=== PATIENT | female | born 1970 | race Caucasian/White ===

== ENCOUNTER 2016-10-13 20:40 | Emergency (ER) | payer BC ==
[~2016-10-13] VITALS: Ht 160 cm; Wt 86.8 kg
[~2016-10-13 20:40] MED LIST: BUTA1CAP5 PO; ESTR1TAB PO; HYDR-3516 PO; LISI-515 PO; MELO-1 PO; PANT40TA3 PO
[2016-10-13 20:49] VITALS: BP 198/98; PULSE 59; RESP 16; TEMP 98.1; O2SAT 98
[2016-10-13 21:18] VITALS: BP_SYST 143; BP_SYST 150; BP_DIAS 78; BP_DIAS 82; PULSE 55; RESP 16; O2SAT 98
[2016-10-13 22:27] LABS: AUTOMATED NEUTROPHIL # 3.4 TH/MM3 (1.8-7.7); BASOPHIL # 0.1 TH/MM3 (0-0.2); BASOPHIL % 0.7 % (0.0-2.0); EOSINOPHIL # 0.1 TH/MM3 (0-0.4); EOSINOPHIL % 0.7 % (0.0-4.0); HEMO FLAGS DIFF FINAL; LYMPH % 44.1 % (9.0-44.0); LYMPHOCYTE # 3.2 TH/MM3 (1.0-4.8); MEAN CELL VOLUME 78.7 FL (80.0-100.0); MEAN CORPUSCULAR HEMOGLOBIN 25.5 PG (27.0-34.0); MEAN CORPUSCULAR HGB CONC 32.4 % (32.0-36.0); MONO % 6.1 % (0.0-8.0); NEUT % 48.4 % (16.0-70.0); PLATELET COUNT 284 TH/MM3 (150-450); RED CELL DISTRIBUTION WIDTH 12.3 % (11.6-17.2); WHITE BLOOD COUNT 7.2 TH/MM3 (4.0-11.0)
[2016-10-13 22:36] LABS: CHLORIDE 112 MEQ/L (98-107); POTASSIUM 3.2 MEQ/L (3.5-5.1); SODIUM (NA) 145 MEQ/L (136-145)
[2016-10-13 22:40] LABS: ANION GAP 6 MEQ/L (5-15); BICARBONATE 27.4 MEQ/L (21.0-32.0); BLOOD UREA NITROGEN 17 MG/DL (7-18)
[2016-10-13 22:43] LABS: ALT (GPT) 14 U/L (10-53); AST (GOT) 11 U/L (15-37); GLOMERULAR FILTRATION RATE 72 ML/MIN (>89)
[2016-10-13 22:44] LABS: TOTAL BILIRUBIN ADULT 0.2 MG/DL (0.2-1.0)
[2016-10-13 22:45] LABS: ALKALINE PHOSPHATASE 90 U/L (45-117)
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
[2016-10-13 23:26] VITALS: BP 141/77; PULSE 59; RESP 16; O2SAT 99
[2016-10-13 23:28] LABS: ACETAMINOPHEN LESS THAN 2.0 MCG/ML (10.0-30.0)
[2016-10-14 01:06] VITALS: BP 154/78; PULSE 57; RESP 18; TEMP 98.4; O2SAT 98
[2016-10-14 01:34] LABS: AMPHETAMINE, URINE NEG (NEG); BARBITURATES, URINE NEG (NEG); COCAINE, URINE NEG (NEG)
[2016-10-14] MEDS ORDERED: PANTOPRAZOLE SOD 20 MG DELAYED RELEASE TAB PO ONE (03:00)
[2016-10-14 06:23] VITALS: BP 130/76; PULSE 63; RESP 18; O2SAT 95
[2016-10-14] MEDS: ACETAMINOPHEN 325 MG TAB PO ONE ×2 (12:31→12:32)
--- NOTE | 2016-10-14 12:49 | EKG ---
Date Performed: 10/13/2016 Time Performed: 22:35:21 PTAGE: 46 years EKG: SINUS BRADYCARDIA BORDERLINE ECG NO PREVIOUS TRACING DOCTOR: Gaudencio Todd Interpretating Date/Time 10/14/2016 12:46:25
[2016-10-14 13:46] VITALS: BP 130/76; PULSE 63; RESP 18; O2SAT 95
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
[2016-10-20] MEDS ORDERED: CITA20TA4 PO (16:25)
== END 2016-10-14 18:37 | disposition home or self-care (01) ==
LOC: PHED 20:40 → NEPJ 10-14 18:37
DX: T46.4X2A Poisoning by angiotensin-converting-enzyme inhibitors, intentional self-harm, initial encounter (principal); F43.20 Adjustment disorder, unspecified; I10 Essential (primary) hypertension; R00.1 Bradycardia, unspecified; M79.7 Fibromyalgia; K85.90 Acute pancreatitis without necrosis or infection, unspecified; K21.9 Gastro-esophageal reflux disease without esophagitis; K58.9 Irritable bowel syndrome, unspecified; R16.0 Hepatomegaly, not elsewhere classified
CPT/HCPCS: 80053; 80307; 85025; 93005; 99281; 99283